=== PATIENT | male | born 1990 | race Caucasian/White ===

== ENCOUNTER 2018-11-10 19:26 | Emergency (ER) | payer OTHER, SELFPAY ==
--- NOTE | 2018-11-10 | DI.RAD.S_ITS ---
PROCEDURE: XR RIBS LT 2V INDICATIONS: PAIN LEFT ANTERIOR CHEST. SKI ACCIDENT TECHNIQUE: 3 views of the left ribs were acquired. COMPARISON: [facility], CR, XR CHEST 2V, 11/10/2018, 19:37. FINDINGS: Surgical changes and devices: None. Bones and chest wall: No fractures or dislocations. No suspicious bony lesions. Overlying soft tissues appear unremarkable. Lungs and pleura: The visualized lung appears clear. No pleural effusions or pneumothorax are visible. IMPRESSION: No radiographic evidence for acute left-sided rib fractures. Dictated by: Kush Mahoney M.D. on 11/10/2018 at 20:54 Approved by: Kush Mahoney M.D. on 11/10/2018 at 20:56
[2018-11-10 19:30] VITALS: BP 126/80; PULSE 54; RESP 14; TEMP 36.2; O2SAT 100; BMI 25.1
--- NOTE | 2018-11-10 19:35 | DI.RAD.S_ITS ---
PROCEDURE: XR CHEST 2V INDICATIONS: fell from ski jump landing on chest. Pain Left Anterior TECHNIQUE: 2 views of the chest were acquired. COMPARISON: None. FINDINGS: Surgical changes and devices: None. Lungs and pleura: No pleural effusions or pneumothorax. Lungs are clear. Mediastinum: Mediastinal contours are normal. Heart size is normal. Bones and chest wall: No suspicious bony abnormalities. Soft tissues appear unremarkable. IMPRESSION: Chest without acute cardiopulmonary abnormalities. No acute osseous abnormality seen. Dictated by: Kush Mahoney M.D. on 11/10/2018 at 20:56 Approved by: Kush Mahoney M.D. on 11/10/2018 at 20:57
--- NOTE | 2018-11-10 21:11 | ED.TRAUMA ---
HPI - Trauma General Chief Complaint: Trauma Stated Complaint: SKI ACCIDENT LOST BREATH SPITTING UP BLOOD Time Seen by Provider: 11/10/18 21:09 Source: patient Mode of arrival: ambulatory Limitations: no limitations History of Present Illness HPI narrative: Patient is a 28-year-old male who presents with left-sided chest pain. He was skiing at [employer] when he went off a a 10-12 foot of jump landing flat on his chest. He felt the wind got knocked out of him but he was able to get up. No head injury or loss of consciousness. He stood up and about 10 min later he coughed up some blood about 5/10 times but he has not had any recurrence of hemoptysis. He denies any shortness of breath but he is having discomfort on that left side. No back pain no other injury MD complaint: fall Onset (ago): hour(s) (9) Review of Systems Review of Systems ROS Unobtainable: All systems reviewed & are unremarkable except as noted in HPI and below Constitutional Denies chills, Denies fever(s), Denies lethargy and Denies weakness Cardiovascular Reports as per HPI Respiratory Reports as per HPI and Reports hemoptysis Gastrointestinal Gastrointestinal: Denies abdominal pain, Denies change in bowel habits, Denies diarrhea, Denies nausea and Denies vomiting Musculoskeletal Denies back pain, Denies muscle weakness, Denies numbness and Denies tingling Integumentary/Breasts Denies pruritus, Denies erythema, Denies rash and Denies wounds Neurologic Denies numbness, Denies tingling and Denies weakness FOR[facility]LY [facility] Social History Smoking Status: Never smoker Exam Initial Vital Signs Initial Vital Signs: Vital Signs Temperature 97.2 F L 11/10/18 19:30 Pulse Rate 54 L 11/10/18 19:30 Respiratory Rate 14 11/10/18 19:30 Blood Pressure 126/80 11/10/18 19:30 Pulse Oximetry 100 11/10/18 19:30 GENERAL: Well-appearing, well-nourished and in no acute distress. HEENT: Head atraumatic,EOMI, pupils reactive, CARDIOVASCULAR: Regular rate and rhythm without murmurs, rubs or gallops. RESPIRATORY: Breath sounds equal bilaterally, no wheezes rales or rhonchi. mild reproducible pain on the left side now contusion new paradoxical movement is no bony deformity ABDOMEN: Soft, nontender. Normoactive bowel sounds all 4 quadrants. No guarding or rebound. EXTREMITIES: Normal range of motion, no clubbing or edema. Neurovascularly intact NEUROLOGICAL: Alert and oriented x4.Normal gait and speech. SKIN: Warm, dry, no laceration, no petechiae, no rashes or lesions. Course Orders Ordered: ED Orders 11/10/18 19:35 XR chest 2V Stat Vital Signs - 8 hr 11/10/18 19:30 11/10/18 21:12 Temperature 97.2 F L Pulse Rate 54 L 52 L Respiratory Rate 14 18 Blood Pressure 126/80 Blood Pressure [Right Arm] 128/88 Pulse Oximetry 100 99 MDM - Trauma Imaging Data Chest x-ray: Radiologist's impression: PROCEDURE: XR CHEST 2V INDICATIONS: fell from ski jump landing on chest. Pain Left Anterior TECHNIQUE: 2 views of the chest were acquired. COMPARISON: None. FINDINGS: Surgical changes and devices: None. Lungs and pleura: No pleural effusions or pneumothorax. Lungs are clear. Mediastinum: Mediastinal contours are normal. Heart size is normal. Bones and chest wall: No suspicious bony abnormalities. Soft tissues appear unremarkable. IMPRESSION: Chest without acute cardiopulmonary abnormalities. No acute osseous abnormality seen. Dictated by: Kush Mahoney M.D. on 11/10/2018 at 20:56 Approved by: Kush Mahoney M.D. on 11/10/2018 at 20:57 rib xr: Radiologist's impression: PROCEDURE: XR RIBS LT 2V INDICATIONS: PAIN LEFT ANTERIOR CHEST. SKI ACCIDENT TECHNIQUE: 3 views of the left ribs were acquired. COMPARISON: [facility], , XR CHEST 2V, 11/10/2018, 19:37. FINDINGS: Surgical changes and devices: None. Bones and chest wall: No fractures or dislocations. No suspicious bony lesions. Overlying soft tissues appear unremarkable. Lungs and pleura: The visualized lung appears clear. No pleural effusions or pneumothorax are visible. IMPRESSION: No radiographic evidence for acute left-sided rib fractures. Dictated by: Kush Mahoney M.D. on 11/10/2018 at 20:5 MDM Narrative Medical decision making narrative: patient has not had any further episodes of hemoptysis. His breath sounds are equal x-rays are negative. No sign of pneumothorax. 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 Discharge Plan Departure Patient Disposition: Home Clinical Impression: Contusion of chest, Costochondritis Discharge Date/Time: 11/10/18 21:53 Interventions: ED Discharge Assessment Last Done: 11/10/18 21:53 Instructions: Costochondritis Activity Restrictions/Additional Instructions: *You have been diagnosed with Left-sided chest contusion, costochondritis *What to do: increase activity as tolerated, recommend taking 1-2 resting *Continue to take medications as directed [ Motrin 800 mg every 8 hr with food if needed for pain *Follow up with your primary care provider in 2-3 days *Return to ER if you should have coughing up 1-2 cup fulls of blood, increasing shortness of breath, increasing pain or any new, worsening or concerning symptoms Referrals: [facility] [Provider Group]
[2018-11-10 21:12] VITALS: BP 128/88; PULSE 52; RESP 18; O2SAT 99
== END 2018-11-10 21:53 | disposition home or self-care (01) ==
PROVIDERS: Emergency Provider Emergency Medicine
DX: S20.219A Contusion of unspecified front wall of thorax, initial encounter (principal); M94.0 Chondrocostal junction syndrome [Tietze]; V00.328A Other snow-ski accident, initial encounter; Y93.23 Activity, snow (alpine) (downhill) skiing, snowboarding, sledding, tobogganing and snow tubing
CPT/HCPCS: 71046; 71100; 99282; 99283

== ENCOUNTER 2019-12-12 16:44 | Emergency (ER) | payer OTHER, SELFPAY ==
[2019-12-12 16:53] VITALS: BP 130/93; PULSE 56; RESP 16; TEMP 37; O2SAT 97; BMI 25.1
--- NOTE | 2019-12-12 16:56 | DI.RAD.S_ITS ---
PROCEDURE: XR FINGER RT MIN 2V INDICATIONS: cut on tablesaw TECHNIQUE: AP hand, 2 views of the middle finger(s) acquired. COMPARISON: None. FINDINGS: Soft tissue swelling along the distal aspect of the 3rd digit is identified with associated soft tissue injury. No fractures or dislocations are identified. No suspicious osseous lesions are evident. No radiopaque foreign bodies are evident. However, there is an overlying bandage, which could potentially obscure a very small radiopaque foreign body. Otherwise, the imaged bony and soft tissues of the right hand are unremarkable. IMPRESSION: Soft tissue injury involving the distal middle finger without an associated fracture or definite radio opaque foreign body. Dictated by: Guanaco Paula M.D. on 12/12/2019 at 16:16 Approved by: Guanaco Paula M.D. on 12/12/2019 at 16:17
[2019-12-12] MEDS: BACITRACIN OINT 0.9 GM PCKT 1 APPLIC TOP (18:17)
--- NOTE | 2019-12-12 18:20 | ED.WOUNDLAC ---
HPI - Wound/Laceration <RAFI Lara - Last Filed: 12/12/19 18:28> General Chief Complaint: Wound/Laceration Stated Complaint: states cut tip of middle finger right hand Time Seen by Provider: 12/12/19 16:58 Source: patient Mode of arrival: Ambulatory Limitations: no limitations History of Present Illness HPI narrative: The patient is a 29-year-old male nonsmoker presents with a friend for chief complaint of a laceration to the middle finger of his right hand. He cut the tip of the finger with a table saw. Tetanus is up-to-date as the patient is a . He has not washed out yet. He is concerned about infection. He states happened 1 hour prior to arrival. He states he has full range of motion, though he states that the area is painful. Related Data Allergies Allergy/AdvReac Type Severity Reaction Status Date / Time No Known Drug Allergies Allergy Verified 12/12/19 16:56 Review of Systems <RAFI Lara - Last Filed: 12/12/19 18:28> Review of Systems Narrative: GENERAL: Denies chills, fatigue, malaise, fever, sweats. HEENT: Denies sinus pain, ear pain, sore throat, difficulty swallowing, dizziness. RESPIRATORY: Denies dyspnea, cough, wheezing, hemoptysis, sputum. CARDIOVASCULAR: Denies chest pain, palpitations, orthopnea, edema, GASTROINTESTINAL: Denies nausea, vomiting, abdominal pain, diarrhea, constipation, melena. : Denies dysuria, frequency, incontinence, hematuria, urinary retention. MUSCULOSKELETAL: See HPI SKIN: See HPI NEUROLOGIC: Denies weakness, headache, numbness, change in speech, confusion, seizures, incoordination. PSYCHIATRIC: No concerning psychosocial issues. 12 point review of systems is negative except for those stated above Patient History <RAFI Lara - Last Filed: 12/12/19 18:28> Social History Smoking Status: Never smoker Smoking Status: Never smoker alcohol intake frequency: 0-2 drinks per day Substance Use Type: does not use Exam <RAFI Lara - Last Filed: 12/12/19 18:28> Narrative Exam Narrative: GENERAL: This is a well-nourished, well-developed patient, in no acute distress HEAD: Atraumatic. Normocephalic. No temporal or scalp tenderness. EYES: Pupils equal round and reactive. Extraocular motions intact. No scleral icterus. No injection or drainage. ENT: Nose without bleeding, purulent drainage or septal hematoma. Throat without erythema, tonsillar hypertrophy or exudate. Uvula midline. Airway patent. NECK: Trachea midline. No JVD or lymphadenopathy. Supple, nontender, no meningeal signs. CARDIOVASCULAR: Regular rate and rhythm RESPIRATORY: No cough. No increased respiratory effort. No accessory muscle use. EXTREMITIES: Able flex and extend right middle finger against resistance BACK: Nontender without deformity or crepitance. No flank tenderness. NEURO: AOx3. SKIN: 0.5 cm avulsion noted to tip of right middle finger, no obvious bone, through tip of nail. No obvious muscle or tendon involvement. No active bleeding on exam Initial Vital Signs Initial Vital Signs: Vital Signs Temperature 98.6 F 12/12/19 16:53 Pulse Rate 56 L 12/12/19 16:53 Respiratory Rate 16 12/12/19 16:53 Blood Pressure 130/93 H 12/12/19 16:53 Pulse Oximetry 97 12/12/19 16:53 <Santana Blackwell DO - Last Filed: 12/12/19 18:53> Initial Vital Signs Initial Vital Signs: Vital Signs Temperature 98.6 F 12/12/19 16:53 Pulse Rate 56 L 12/12/19 16:53 Respiratory Rate 16 12/12/19 16:53 Blood Pressure 130/93 H 12/12/19 16:53 Pulse Oximetry 97 12/12/19 16:53 Course <RAFI Lara - Last Filed: 12/12/19 18:28> Orders Ordered: ED Orders 12/12/19 16:56 XR finger RT min 2V Stat Discontinued Medications Bacitracin (Bacitracin) 1 applic TOP NOW ONE Stop: 12/12/19 18:07 Last Admin: 12/12/19 18:17 Dose: 1 applic Documented by: ELMER Vital Signs Vital signs: Vital Signs - 8 hr 12/12/19 16:53 12/12/19 18:38 Temperature 98.6 F Pulse Rate 56 L 62 Respiratory Rate 16 15 Blood Pressure 130/93 H 127/77 Pulse Oximetry 97 99 <Santana Blackwell DO - Last Filed: 12/12/19 18:53> Orders Ordered: ED Orders 12/12/19 16:56 XR finger RT min 2V Stat Discontinued Medications Bacitracin (Bacitracin) 1 applic TOP NOW ONE Stop: 12/12/19 18:07 Last Admin: 12/12/19 18:17 Dose: 1 applic Documented by: ELMER Vital Signs Vital signs: Vital Signs - 8 hr 12/12/19 16:53 12/12/19 18:38 Temperature 98.6 F Pulse Rate 56 L 62 Respiratory Rate 16 15 Blood Pressure 130/93 H 127/77 Pulse Oximetry 97 99 MDM - Wound/Laceration <RAFI Lara - Last Filed: 12/12/19 18:28> Imaging Data Extremity x-ray #1: Radiologist's Impression: [address] [place] [id number] XRay Report Signed Patient: BERTHA CORNELIUS R#: [id number] : 1990Acct:[id number] Age/Sex: 29 / MDate of Service: 12/12/19 Loc: ED Accession Number: [id number] Procedure: XR finger RT min 2V Ordering Provider: Santana Blackwell D.O. PROCEDURE: XR FINGER RT MIN 2V INDICATIONS: cut on tablesaw TECHNIQUE: AP hand, 2 views of the middle finger(s) acquired. COMPARISON: None. FINDINGS: Soft tissue swelling along the distal aspect of the 3rd digit is identified with associated soft tissue injury. No fractures or dislocations are identified. No suspicious osseous lesions are evident. No radiopaque foreign bodies are evident. However, there is an overlying bandage, which could potentially obscure a very small radiopaque foreign body. Otherwise, the imaged bony and soft tissues of the right hand are unremarkable. IMPRESSION: Soft tissue injury involving the distal middle finger without an associated fracture or definite radio opaque foreign body. Dictated by: Guanaco Paula M.D. on 12/12/2019 at 16:16 Approved by: Guanaco Paula M.D. on 12/12/2019 at 16:17 MDM Narrative Medical decision making narrative: The patient is a 29-year-old male who presents with a chief complaint of laceration the tip of his right finger. He has a negative x-ray. Tetanus is up-to-date. Wound was copiously cleansed with Hibiclens. No open fracture per x-ray, wound was cleansed and dressed by nursing staff. Discussed at length monitoring for signs and symptoms of infection, extending redness, drainage. Encouraged patient to keep wound clean and dry, not to use emergent dirty water etcetera. Encourage PCP follow-up in the next few days. Patient has no questions or concerns upon discharge and states understanding of return precautions as well as follow-up care. Discharge Plan Departure Patient Disposition: Home Clinical Impression: Avulsion of skin Discharge Date/Time: 12/12/19 18:39 Instructions: DI for Avulsion Laceration (Not Requiring Sutures), DI for Minor Laceration Activity Restrictions/Additional Instructions: Please follow-up with primary care provider in the next few days. Please monitor your laceration for signs and symptoms of infection such as redness extending of the finger, purulence drainage etcetera Please keep your wound clean and dry. Please do not submerge your wound into dirty water including dishwater etcetera Referrals: [facility] [Provider Group]
[2019-12-12 18:38] VITALS: BP 127/77; PULSE 62; RESP 15; O2SAT 99
== END 2019-12-12 18:39 | disposition home or self-care (01) ==
PROVIDERS: Emergency Provider Nurse Practitioner Family
DX: S61.212A Laceration without foreign body of right middle finger without damage to nail, initial encounter (principal); W29.3XXA Contact with powered garden and outdoor hand tools and machinery, initial encounter
CPT/HCPCS: 73140; 99281; 99283

== ENCOUNTER 2020-10-08 11:14 | Emergency (ER) | payer OTHER, SELFPAY ==
[2020-10-08 11:31] VITALS: BP 132/84; PULSE 75; RESP 18; TEMP 37.1; O2SAT 97; BMI 25.8
[2020-10-08 11:51] LABS: COVID19 -Nasal RAPID POSITIVE (Negative)
--- NOTE | 2020-10-08 12:35 | ED.RECABL ---
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 Patient reports since yesterday he was feeling fatigue and had clear white mucousy cough for a day but denies other Covid related symptoms such as short of breath, headache, sore throat, body aches, fever, rhinorrhea, nausea/vomiting/diarrhea, loss of taste or smell. Patient traveled last night from [place] after attending a class with another co-worker who test positive today for COVID 19. Patient is currently self quarantine himself at a hotel and had not return to work or home. Related Data Allergies Allergy/AdvReac Type Severity Reaction Status Date / Time No Known Drug Allergies Allergy Verified 10/08/20 11:37 Review of Systems <THEO FortuneP - Last Filed: 10/08/20 12:44> Review of Systems Narrative: General: Denies fever, chills, (+) fatigue, malaise, sweats. HEENT: Denies sinus pain, ear pain, sore throat, difficulty swallowing, dizziness. Respiratory: Denies dyspnea, cough, wheezing, hemoptysis, sputum. Cardiovascular: Denies chest pain, palpitations, orthopnea, edema. Gastrointestinal: Denies nausea, vomiting, abdominal pain, diarrhea, constipation, melena. : Denies dysuria, frequency, incontinence, hematuria, urinary retention. Musculoskeletal: Denies weakness, joint pain or bony pain. Skin: Denies rash, skin lesions, or other. Neurologic: Denies weakness, headache, numbness, change in speech, confusion, seizures, incoordination. Psychiatric: No concerning psychosocial issues. 12-point review of systems is negative except for those stated above. Patient History <CR Fortune - Last Filed: 10/08/20 12:44> Medical History No significant past medical history Surgical History No pertinent past surgical history Social History Smoking Status: Never smoker Smoking Status: Never smoker alcohol intake frequency: a few times a week Substance Use Type: does not use Exam <CR Fortune - Last Filed: 10/08/20 12:44> Narrative Exam Narrative: General appearance: well developed, well nourished, in no acute distress. Head: normocephalic, atraumatic, no scalp lesions, non-tender. ENT: Hearing grossly intact. Airway patent. Neck/Thyroid: neck supple, full range of motion, no visible masses or meningeal signs. No JVD, non-tender without lymphadenopathy. Skin: no suspicious rashes, lesions over visible areas. Warm and dry and appropriate color for ethnicity. Heart: no clubbing, no cyanosis, no edema. S1 and S2 normal. RRR w/o murmurs, clicks, or bruits. Lungs: Lungs clear to auscultate in all lobes. Breathing even and unlabored. No stridor. No accessory muscles used. Able to speak in full sentences. Chest: normal shape and expansion. Abdomen: non-obese, non-distended. Neurologic: alert and oriented. 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 Psych: good eye contact, normal affect. Initial Vital Signs Initial Vital Signs: Vital Signs Temperature 98.7 F 10/08/20 11:31 Pulse Rate 75 10/08/20 11:31 Respiratory Rate 18 10/08/20 11:31 Blood Pressure 132/84 10/08/20 11:31 Pulse Oximetry 97 10/08/20 11:31 <Monet Calvo DO - Last Filed: 10/09/20 07:19> Initial Vital Signs Initial Vital Signs: Vital Signs Temperature 98.7 F 10/08/20 11:31 Pulse Rate 75 10/08/20 11:31 Respiratory Rate 18 10/08/20 11:31 Blood Pressure 132/84 10/08/20 11:31 Pulse Oximetry 97 10/08/20 11:31 Scores <Wing VerduzcoOrTHEO bonillaP - Last Filed: 10/08/20 12:44> GCS [place] coma scale eye opening: Spontaneous [place] coma scale verbal response: Orientated Charla coma scale motor response: Obey commands [place] coma scale total score: 15 qSOFA Altered Mental Status (GCS <15): No Respiratory rate greater than/equal to 22: No Systolic blood pressure less than or equal to 100: No qSOFA Total: 0 0-1 Not High Risk 1-3 High risk Course <Wing LorenaTHEO bonillaP - Last Filed: 10/08/20 12:44> Orders Ordered: ED Orders 10/08/20 11:31 COVID19 Stat Vital Signs Vital signs: Vital Signs - 8 hr 10/08/20 11:31 Temperature 98.7 F Pulse Rate 75 Respiratory Rate 18 Blood Pressure 132/84 Pulse Oximetry 97 <Monet Calvo DO - Last Filed: 10/09/20 07:19> Orders Ordered: ED Orders 10/08/20 11:31 COVID19 Stat Vital Signs Vital signs: Vital Signs - 8 hr 10/08/20 11:31 Temperature 98.7 F Pulse Rate 75 Respiratory Rate 18 Blood Pressure 132/84 Pulse Oximetry 97 MDM - Recheck/Abnormal Lab/Rx <Wing FitchTHEOP - Last Filed: 10/08/20 12:44> Differential Diagnosis Differential diagnosis: Likely other (COVID-19 infection, viral illness) Medical Records Attestation: I reviewed the patient's medical records. Lab Data Attestation: I reviewed the patient's lab results. 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 He had returned from [place] last night and currently quarantine himself at the [facility]. His only chief complains are fatigue since yesterday and had mild white mucousy cough which had resolved today. Patient had exposed to someone who test positive for COVID today. Patient's vital signs within normal without fever and O2 said and 97% in room air. Lungs clear to auscultate in all lobes. Patient appears to be in nontoxic stay. 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 Return precautions discussed with patient and he verbalized understanding in agreement with the treatment plan. <Monet Calvo, - Last Filed: 10/09/20 07:19> Lab Data Labs: Lab Results 10/08/20 Range/Units 11:31 COVID-19 PCR Positive H (Negative) Discharge Plan Departure Patient Disposition: Home Clinical Impression: COVID-19 Instructions: DI for COVID-19 (Suspected or Confirmed ) Activity Restrictions/Additional Instructions: CDC Guidelines for home isolation: You must quarantine for 14 days. - Stay away from others - Limit contact with pets and animals: If you must care for a pet, wash your hands before and after interacting with them - Wear a mask if you are sick - Cover your mouth and nose with a tissue when you cough or sneeze. Dispose of tissues in a lined trash can and wash your hands immediately with soap and water for at least 20 seconds. If soap and water are not available, clean hands with alcohol-based hand manager bench that contains at least 60% alcohol. - Clean your hands often with soap and water for at least 20 seconds - Avoid touching your eyes, nose and mouth with unwashed hands - Do not share dishes, drinking glasses, cups, eating utensils, towels, or bedding with other people in your home. After using these items, wash them thoroughly with soap and water or put in the lease purchase truck driver. - Clean high-touch surfaces in your isolation area (?sick room? and bathroom) every day; let a caregiver clean and disinfect high-touch surfaces in other areas of the home. Clean the area or item with soap and water or another detergent if it is dirty. Then, use a household disinfectant. Seek medical attention, but call first: - Seek medical care right away if your illness is worsening (for example, if you have difficulty breathing). - Call your doctor before going in: Before going to the doctor?s office or emergency room, call ahead and tell them your symptoms. They will tell you what to do. - If possible, put on a facemask before you enter the building. If you can?t put on a facemask, try to keep a safe distance from other people (at least 6 feet away). This will help protect the people in the office or waiting room. - Follow care instructions from your healthcare provider and local health department: Your local health authorities will give instructions on checking your symptoms and reporting information. Emergency warning signs for COVID-19: - Difficulty breathing or shortness of breath - Persistent pain or pressure in the chest - New confusion or inability to arouse - Bluish lips or face Referrals: [facility] [Outside] <Monet Calvo DO - Last Filed: 10/09/20 07:19> Cosign ED Attending Bonnyature Attestation: I was immediately available in the department for consultation. Documentation has been reviewed. I agree with assessment and plan.
== END 2020-10-08 13:11 | disposition home or self-care (01) ==
PROVIDERS: Emergency Medicine; Emergency Provider Nurse Practitioner Family
DX: U07.1 COVID-19 (principal); R53.83 Other fatigue; R05 Cough
CPT/HCPCS: 87635; 99281; 99282